=== PATIENT | male | born 1975 | race Caucasian/White ===

== ENCOUNTER 2016-08-27 02:48 | Emergency (ER) | payer OTHER ==
[~2016-08-27 02:48] MED LIST: ALEVE; FLEXERIL10 M1 PO; VOLTAREN75 MG PO
== END 2016-08-27 02:56 | disposition left against medical advice (07) ==
LOC: CED 02:48
DX: R41.82 Altered mental status, unspecified (principal); R00.0 Tachycardia, unspecified; R09.02 Hypoxemia; R56.9 Unspecified convulsions; F17.200 Nicotine dependence, unspecified, uncomplicated
CPT/HCPCS: 99283